=== PATIENT | female | born 1985 | race Caucasian/White ===

== ENCOUNTER → 2024-06-19 11:04 | Outpatient (CLI) | payer OTHER, MEDICAID, SELFPAY ==
[2024-06-19 19:45] LABS: Add Manual Diff / Slide Review NO; Basophils Absolute Auto 100 /uL (0-100); Basophils Percent Auto 0.9 % (0-2); Eosinophils Absolute Auto 0 /uL (0-450); Eosinophils Percent Auto 0.4 % (2-4); Hematocrit 42.1 % (36-46); Hemoglobin 14.1 g/dL (12.0-16.0); Lymphocytes Absolute Auto 2200 /uL (1100-4500); Lymphocytes Percent Auto 35.6 % (25-40); Mean Corpuscular HGB Conc 33.5 % (30-36); Mean Corpuscular Hemoglobin 31.8 PG (26-34); Mean Corpuscular Volume 94.9 fL (80-100); Monocytes Absolute Auto 600 /uL (0-900); Monocytes Percent Auto 9.2 % (3-14); Neutrophils Absolute Auto 3400 /uL (1500-7000); Neutrophils Percent Auto 53.9 % (50-75); Platelet Count 362 X10^3/uL (150-400); Red Blood Cell Count 4.44 X10^6/uL (4.0-5.2); Red Cell Distribution Width 12.7 % (11.6-14.8); White Blood Cell Count 6.3 X10^3/uL (4.5-11.0)
[2024-06-19 19:53] LABS: Alanine Aminotransferase 12 IU/L (<35); Albumin 4.2 g/dL (3.5-5.0); Albumin Globulin Ratio 1.4 (1.0-2.8); Alkaline Phosphatase 68 U/L (38-126); Aspartate Aminotransferase 26 IU/L (14-36); Bilirubin Total 0.6 mg/dL (0.2-1.3); Blood Urea Nitrogen 13 mg/dL (7-17); Calcium 9.8 mg/dL (8.4-10.2); Carbon Dioxide 26 mmol/L (22-32); Chloride 103 mmol/L (98-107); Cholesterol 179 mg/dL (140-199); Estimated Glomerular Filt Rate > 60 mL/min (>60); Glucose 86 mg/dL (70-100); HDL Cholesterol 75 mg/dL (40-60); HEMOLYSIS 25 (0-50); LDL Cholesterol Calculated 92 mg/dL (<100); Potassium 4.3 mmol/L (3.4-5.1); Sodium 134 mmol/L (137-145); Total Protein 7.2 g/dL (6.3-8.2); Triglycerides 60 mg/dL (35-150); Uric Acid 4.3 mg/dL (2.5-6.2); VLDL Cholesterol Calculated 12 mg/dL (2-30)
[2024-06-19 19:55] LABS: HEMOLYSIS < 15 (0-50); Iron 158 ug/dL (37-170)
[2024-06-19 19:57] LABS: High Sensitivity CRP - Cardiac < 0.3 mg/L (1.0-3.0)
[2024-06-19 20:05] LABS: Lactate Dehydrogenase 161 U/L (120-246); Percent Iron Saturation 60 % (15-50); Total Iron Binding Capacity 262 ug/dL (265-497); Transferrin 215 mg/dL (206-381)
[2024-06-19 20:13] LABS: Free T3, Triiodothyronine Free 3.74 pg/mL (2.77-5.27)
[2024-06-19 20:28] LABS: Ferritin 51 ng/mL (6-137)
== END ==
PROVIDERS: Naturopath
DX: Q79.60 Ehlers-Danlos syndrome, unspecified (principal); M79.673 Pain in unspecified foot; G54.0 Brachial plexus disorders; M25.511 Pain in right shoulder; R14.0 Abdominal distension (gaseous); R53.82 Chronic fatigue, unspecified; K90.49 Malabsorption due to intolerance, not elsewhere classified; R19.5 Other fecal abnormalities; M53.82 Other specified dorsopathies, cervical region; R68.89 Other general symptoms and signs
CPT/HCPCS: 80053; 80061; 82306; 82728; 83540; 83550; 83615; 84439; 84443; 84481; 84482; 84550; 85025; 86140; 86376; 86800